=== PATIENT | female | born 1990 | race Hispanic/Latino ===

== ENCOUNTER → 2020-07-03 | Outpatient (CLI) | payer MEDICAID ==
[~2020-07-03] VITALS: Ht 12.7 cm; Wt 105.7 kg
== END | disposition home or self-care (01) ==
LOC: DTH 10:02
PROVIDERS: ATTEND Surgery
DX: E66.01 Morbid (severe) obesity due to excess calories (principal)
CPT/HCPCS: 97802

== ENCOUNTER → 2020-09-07 | Outpatient (CLI) | payer MEDICAID | END | disposition home or self-care (01) | LOC: DTH 10:32 → EDSTATUS 10:43 | PROVIDERS: ATTEND Surgery | DX: E66.01 Morbid (severe) obesity due to excess calories (principal) | CPT/HCPCS: 97803 ==

== ENCOUNTER → 2020-10-09 | Outpatient (CLI) | payer OTHER | END | disposition home or self-care (01) | LOC: DTH 10:05 | PROVIDERS: ATTEND Surgery | DX: E66.01 Morbid (severe) obesity due to excess calories (principal) | CPT/HCPCS: 97803 ==

== ENCOUNTER → 2020-11-13 | Outpatient (CLI) | payer OTHER | END | disposition home or self-care (01) | LOC: DTH 09:03 | PROVIDERS: ATTEND Surgery | DX: E66.01 Morbid (severe) obesity due to excess calories (principal) | CPT/HCPCS: 97803 ==

== ENCOUNTER → 2020-11-29 | Outpatient (CLI) | payer OTHER | END | disposition home or self-care (01) | LOC: DTH 13:06 | PROVIDERS: ATTEND Surgery | DX: E66.01 Morbid (severe) obesity due to excess calories (principal) | CPT/HCPCS: 97803 ==

== ENCOUNTER 2020-12-15 07:00 | Day surgery (SDC) | payer MEDICAID ==
[~2020-12-15] VITALS: Ht 165.1 cm; Wt 105.7 kg
[~2020-12-15 07:00] MED LIST: 0.9%NACL 1000ML 1,000 ML IV ONE
[2020-12-15 07:51] VITALS: BP 128/75
[2020-12-15] MEDS ORDERED: PROPOFOL 10 MG/ML 20ML VIAL IV ONE (09:06)
[2020-12-15 09:15] VITALS: BP 120/74
[2020-12-15 09:20] VITALS: BP 124/66
[2020-12-15 09:25] VITALS: BP 128/70
[2020-12-15 09:30] VITALS: BP 124/74
[2020-12-15 09:45] VITALS: BP 123/74
== END 2020-12-15 09:57 | disposition home or self-care (01) ==
LOC: ENDO 07:00 → DAH 07:00 → ENDO 09:57
PROVIDERS: ATTEND Surgery
DX: K21.9 Gastro-esophageal reflux disease without esophagitis (principal); Z20.822 Contact with and (suspected) exposure to COVID-19; E66.9 Obesity, unspecified; Z82.49 Family history of ischemic heart disease and other diseases of the circulatory system; Z83.3 Family history of diabetes mellitus; Z79.899 Other long term (current) drug therapy
CPT/HCPCS: 36415; 43235; 84703; 87426; A4215 ×2; A4221; A4222; A4223; A4606; A4620; A4657 ×2; A4663; J3490; J7030; J2704

== ENCOUNTER 2021-10-19 08:48 | Emergency (ER) | payer MEDICAID ==
[~2021-10-19] VITALS: Ht 165.1 cm; Wt 74.4 kg
[2021-10-19 08:49] VITALS: BP 121/60
[2021-10-19] MEDS ORDERED: LORA10TA7 PO (09:47)
[2021-10-19] MEDS ORDERED: FLUT16H NASAL (09:47)
== END 2021-10-19 09:55 | disposition home or self-care (01) ==
LOC: EDH 08:48
DX: J32.9 Chronic sinusitis, unspecified (principal); Z20.822 Contact with and (suspected) exposure to COVID-19; Z91.018 Allergy to other foods; Z98.890 Other specified postprocedural states
CPT/HCPCS: 87635; 87804 ×2; 87880; 99283; C9803